=== PATIENT | female | born 1940 | race Caucasian/White ===

== ENCOUNTER 2024-09-20 08:34 | Inpatient (IN) | payer MEDICARE, SELFPAY ==
[2024-09-20] VITALS (113 sets, daily range): BP systolic 91–138; BP diastolic 48–95; PULSE 81–150; RESP 2–42; TEMP 36.7–39; O2SAT 83–100
--- NOTE | 2024-09-20 08:30 | RT.EKG_ITS ---
APPROVED REPORT Exam: Resting ECG Reason for Exam: altered mental status Patient Location: E HR:121 bpm ECG Measurements Heart Rate 121 AXIS VT 132 P 82 QRSd 171 QRS -60 QT 360 T 109 QTc 511 Conclusion Sinus tachycardia...rate> 99 Atrial premature complex...SV complex w/ short R-R interval Left bundle branch block...QRSd>120, broad/notched R ST elevation secondary to IVCD...Multiple VCG criteria Physician: borderline for meeting jaidaa criterion. Similiar to prior ekg at [facility] 72hrs ago
[2024-09-20 09:13] LABS: BE (Venous) -6 mmol/L (-2-3); HCO3 (Venous) 20 mmol/L (23-28); O2 Sat (Venous) 67 %; TCO2 (Venous) 18 mmol/L (24-29); pCO2 (Venous) 33 mmHg (41-51); pH (Venous) 7.38 (7.31-7.41); pO2 (Venous) 39 mmHg
[2024-09-20 09:15] LABS: Lactate 3.5 mmol/L (<or=2.0)
[2024-09-20 09:17] LABS: Abs Immature Grans 0.03 10^3/uL (0.0-0.06); Absolute Basophil Count 0.02 10^3/uL (0.0-0.2); Absolute Lymphocyte Count 0.44 10^3/uL (1.2-3.4); Absolute Monocyte Count 0.43 10^3/uL (0.1-0.8); Absolute Neutrophil Count 7.34 10^3/uL (1.2-6.7); Basophils % 0.2 %; HCT 36.5 % (36.0-46.0); HGB 12.1 g/dL (11.2-15.7); Immature Grans % 0.4 %; Lymphocytes % 5.3 %; MCH 30.5 pg (27.0-33.0); MCHC 33.2 % (32.0-36.0); MCV 92 fL (80-95); Monocytes % 5.2 %; Neutrophils % 88.9 %; RBC 3.97 10^6/uL (3.93-5.22); RDW 14.9 % (11.7-14.6); RDW-SD 50.9 fL; WBC 8.26 10^3/uL (4.4-10.8)
[2024-09-20] MEDS: Normal Saline 500 ML IV (09:20)
--- NOTE | 2024-09-20 09:22 | W.ED.GENAD ---
Discharge Plan Disposition Patient Disposition: Admit to [facility] Condition: Deteriorating Discharge Details Clinical Impression: Severe sepsis, Pancreatic mass, Congestive heart failure, Acute hypoxic respiratory failure, Acute metabolic encephalopathy, Acute renal failure, Thrombocytopenia Admit Date/Time: 09/20/24 14:48 Admit Provider: Jose E Acosta Attending Provider: Jose E Acosta Primary Care Provider: Leona Alfred ED Provider: Bubba Brannon HPI General Date/Time Provider Initiated Documentation: 09/20/24 08:36. HPI Narrative: 83-year-old female who has not visited this hospital before, who per family has a past medical history of congestive heart failure, COPD, mild dementia, presents today for evaluation of weakness, altered mental status and difficulty breathing. History does not come from the patient at all as she is notably confused and weak, history comes from family and history is slightly unclear, however it appears that the patient is normally quite functional and is able to feed and bathe herself well without any difficulty, she is able to normally conversation well, however about 48 hours ago she became notably weak and confused with garbled speech. She was brought to [facility], per family CT scan was negative, she was admitted, she had an MRI which was per family also negative. She remained quite weak and confused but was discharged home last night. While at home she continued to be more weak and gradually got more confused, had increased difficulty breathing, was given breathing treatments, had 1 or 2 dark bowel movements, and then this morning as her symptoms were all continuing to progressively worsen was brought to our emergency department for further assessment. Family denies any new falls or trauma otherwise. They state that she did not urinate much while at [facility]. They deny any other complaints at this time. Aside for receiving 1 or 2 breathing treatments at home, no other significant interventions were made medically. No other complaints at this time. Daughter who is at bedside states that the patient would not want to be intubated or have CPR performed. We do not have any advanced directives on record. Related Data Home Medications ?Medication ?Instructions ?Recorded ?Confirmed albuterol sulfate 90 mcg/actuation 2 inh inhalation Q6H PRN 09/20/24 09/20/24 aerosol inhaler (Ventolin HFA) aspirin 81 mg tablet,delayed 81 mg PO DAILY 09/20/24 09/20/24 release (Adult Aspirin Regimen) atorvastatin 40 mg tablet (Lipitor) 40 mg PO QHS 09/20/24 09/20/24 fluticasone furoate 100 1 inh inhalation DAILY 09/20/24 09/20/24 mcg-vilanterol 25 mcg/dose inhalation powder (Breo Ellipta) furosemide 40 mg tablet (Lasix) 40 mg PO DAILY 09/20/24 09/20/24 ipratropium 0.5 mg-albuterol 3 mg 3 ml inhalation QID PRN 09/20/24 09/20/24 (2.5 mg base)/3 mL nebulization soln losartan 25 mg tablet (Cozaar) 25 mg PO DAILY 09/20/24 09/20/24 magnesium gluconate 500 mg tablet 250 mg PO BID 09/20/24 09/20/24 metoprolol succinate 25 mg capsule 25 mg PO DAILY 09/20/24 09/20/24 sprinkle, ext. release 24 hr potassium chloride 20 mEq 20 meq PO DAILY 09/20/24 09/20/24 tablet,extended release(part/cryst) (Klor-Con M) Allergies Allergy/AdvReac Type Severity Reaction Status Date / Time No Known Allergies Allergy Unverified 09/20/24 10:18 General Stated Complaint: Fever CHARLES: 2 Exam Narrative Exam Narrative: 1.Const: Well-nourished, Well-developed, appearing stated age 2.Eyes: PERRL, no conjunctival injection, and symmetrical lids. 3.ENT: Atraumatic external nose and ears. Notably dry MM. Neck: Symmetric, trachea midline, No thyromegaly. No nuchal rigidity or neck stiffness 4.CVS: +S1/S2, Peripheral pulses 2+ and equal in all extremities. Brisk capillary refill in all extremities. 5.RESP: Tachypneic. Relatively clear to auscultation bilaterally. No significant wheezes rales or rhonchi 6.GI: Soft, Nontender/Nondistended, No hepatosplenomegaly. No guarding or rebound. 7.MSK: Normocephalic/Atraumatic, Extremities w/o deformity or ttp No cyanosis or clubbing, Normal movement of all extremities 8.Skin: Warm, Dry. No rashes or lesions. 9.Neuro: Patient moves all extremities, and seems to be writhing around in bed. She does make worded comments, but none that are indicative to the clinical scenario. She is not able to answer any questions. She responds to painful stimuli on pinching for all extremities, GCS is 10 10.Psych: (AAO) x0. Course Vital Signs Vital signs: Vital Signs Temperature 38.8 C H 09/20/24 08:35 Pulse 126 H 09/20/24 08:35 Respiratory Rate 39 H 09/20/24 08:35 Blood Pressure 138/95 H 09/20/24 08:35 Pulse Oximetry 83 L 09/20/24 08:35 Temperature 38.8 C H 09/20/24 08:35 Temperature Source Rectal 09/20/24 08:35 Pulse 126 H 09/20/24 08:35 Respiratory Rate 39 H 09/20/24 08:35 Blood Pressure 138/95 H 09/20/24 08:35 Blood Pressure Position Supine 09/20/24 08:35 Pulse Oximetry 83 L 09/20/24 08:35 Oxygen Delivery Method Room Air 09/20/24 08:35 Oxygen Flow Rate 0 09/20/24 08:35 Comment placed on NRB 09/20/24 08:35 Lab/Test Results Lab/Test Results: 09/20/24 09:14 Blood Blood Culture - Pending 09/20/24 09:00 Blood Blood Culture - Pending Laboratory Tests Range/Units 09/20/24 09:00 VBG pH (7.31-7.41) 7.38 VBG pCO2 (41-51) mmHg 33 L VBG pO2 mmHg 39 VBG HCO3 (23-28) mmol/L 20 L VBG Total CO2 (24-29) mmol/L 18 L VBG O2 Saturation % 67 VBG Base Excess (-2-3) mmol/L -6 L VBG Lactate (<or=2.0) mmol/L 3.5 H* NT-Pro-B Natriuret Pep Cancelled Medical Decision Making 83-year-old female who has not visited this hospital before, who per family has a past medical history of congestive heart failure, COPD, mild dementia, presents today for evaluation of weakness, altered mental status and difficulty breathing. History does not come from the patient at all as she is notably confused and weak, history comes from family and history is slightly unclear, however it appears that the patient is normally quite functional and is able to feed and bathe herself well without any difficulty, she is able to normally conversation well, however about 48 hours ago she became notably weak and confused with garbled speech. She was brought to [facility], per family CT scan was negative, she was admitted, she had an MRI which was per family also negative. She remained quite weak and confused but was discharged home last night. While at home she continued to be more weak and gradually got more confused, had increased difficulty breathing, was given breathing treatments, had 1 or 2 dark bowel movements, and then this morning as her symptoms were all continuing to progressively worsen was brought to our emergency department for further assessment. Family denies any new falls or trauma otherwise. They state that she did not urinate much while at [facility]. They deny any other complaints at this time. Aside for receiving 1 or 2 breathing treatments at home, no other significant interventions were made medically. No other complaints at this time. Daughter who is at bedside states that the patient would not want to be intubated or have CPR performed. We do not have any advanced directives on record. Exam demonstrates an altered female, notably dry mucous membranes, GCS of 10, lungs are relatively clear however she is notably hypoxic on arrival at 83%. She is febrile, tachycardic, and tachypneic meeting sepsis criteria. Concern for pneumonia, UTI, dehydration, hypercarbic respiratory acidosis, elevated ammonia level, or electrolyte derangement. Stroke less likely, but remains on the differential. No neck stiffness or nuchal rigidity to suggest meningitis. Tickborne illness of concern but family is not aware of any recent tick bites. Will evaluate for these etiologies, gently rehydrate, start broad-spectrum antibiotics vancomycin Zosyn and doxycycline, will look for records from [facility], will monitor closely and reassess. Notable left bundle branch block, but does not quite meet Sgarbossa criteria and or modified Sgarbossa criteria and for positive CA, however findings are notably borderline. 10:04 AM Records were [place] [facility] [facility] [place] records indicate from [facility] back in 2023 that the patient has a history of cardiomyopathy in the setting of COPD, her ejection fraction then was 30 to 35% with diffuse hypokinesis and a right ventricle that was moderately to severely decreased in function, however she was on diuretics for CHF, she also had a known history of left bundle branch block. 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 No other evidence of acute process on CT imaging. Patient was admitted and MRI was performed. Per discharge summary it was stated that she returned to her baseline and MRI results were not back yet. Discharge summary states that feels that she is safe to be discharged home. She was discharged home on baby aspirin and atorvastatin. We will request MRI report from [facility].` 4:27 PM Laboratory workup has returned, patient's fever has improved, oxygen saturation is 96% on 3 L, heart rate has improved to 108 after gentle fluids, she has no white count, platelets are down to 85, she has a mild left shift. VBG is stable, lactate is 3.5, electrolytes stable, creatinine up to 1.8, BUN of 65, notable transaminitis with an AST of 2100 and ALT of 1500. Lipase is normal, proBNP notably high at greater than 35,000, procalcitonin high at 42, initial troponin 900, repeat troponin is now up to 1200. I did contact [facility] and discussed the case with Ivana from cardiology as well as Dr. Urbina her attending. They reviewed the EKG and do not feel that it meet Sgarbossa criteria and. Although the troponin is notably climbing, they feel this is more likely related to demand ischemia type II NSTEMI secondary to her notable illness. Urinalysis shows no evidence of infection. CT imaging shows notable cardiomegaly, pulmonary edema pleural effusions, there are enlarged pulmonary arteries suggestive of pulmonary artery hypertension. There is evidence of abdominal ascites, soft tissue edema suspicious for anasarca, hypodensity in the liver, concerning for metastatic lesions, as well as evidence of a hypodensity in the head of the pancreas concerning for pancreatic cancer. Patient still requiring oxygen supplementation, mental status still notably diminished. With the patient's significant cardiac component, her clinical evidence to suggest dehydration and tachycardia and severe sepsis with her lactate procalcitonin and fever and tachycardia, in combination with her challenging cardiac clinical picture, compounded by the patient's concern for potential pancreatic cancer and her sudden rapid increase in transaminitis, I discussed the concerning clinical picture with family. Broad-spectrum antibiotics had already been started of vancomycin and Zosyn and doxycycline, however I am worried that the patient's cumulative picture may represent that of an irreversible acute decline. We discussed all of these findings and concerns with family, and at this time through shared decision making process the patient will be admitted for further monitoring, and discussion of potential transition to end-of-life care and home discharge. I discussed this with the hospitalist Dr. Emery, he agrees with the assessment and plan. I have extensively reviewed the treatment plan with the patient. I have addressed all patient concerns at this time. I have also discussed the plan with the admitting physician and they agree with the current assessment and plan and have agreed to assume responsibility for the patient. All parties demonstrate verbal understanding and agreement with our assessment and plan at this time. The documentation in this chart was dictated using [employer] dictation software. Please excuse any dictation errors. FINDINGS: Ventricles and Extra axial spaces: Normal in size and morphology for the patient's age. Hemorrhage: None. Cerebral parenchyma: There are areas of decreased attenuation in the white matter most consistent with chronic microvascular ischemic disease. There is no mass effect or evidence of an acute territorial infarct. There is an area of encephalomalacia in the left parietal lobe. Midline shift: None. Brainstem/Cerebellum: Normal. Calvarium: Normal. Visualized Paranasal sinuses/Mastoids: Clear. Soft Tissues: There is an enlarged right superior ophthalmic vein. IMPRESSION: 1. No acute intracranial process. 2. Enlarged right superior ophthalmic vein. Nonemergent MRI of the orbits without and with contrast is recommended for further evaluation. FINDINGS: The examination is limited due to patient motion artifact. Lack of IV contrast does limit evaluation of the abdominal pelvic organs. CHEST: Tracheobronchial tree: Patent where visualized. No bronchiectasis. Pulmonary parenchyma: There is a small left pleural effusion and subjacent infiltrate. There is mild interstitial thickening which may represent pulmonary edema. There is a small right pleural effusion. Mediastinum and Laina: No dominant adenopathy or fluid collection. The esophagus is unremarkable. Thyroid gland: Unremarkable. Pleura: There is no pneumothorax. Heart: There is marked cardiomegaly. There is prominence of the pulmonary vasculature suggesting pulmonary artery hypertension. Coronary artery calcifications are present. There is calcification of the mitral annulus. No pericardial effusion. Aorta: The ascending thoracic aorta measures 4.2 x 4.0 cm. Atherosclerotic calcification is present. Lymph nodes: Within normal limits. Bones:Within normal limits for the patient's age. There are old healed bilateral rib fracture deformities. Bones are osteopenic. Soft tissues: Unremarkable. ABDOMEN: Liver: The liver is enlarged. There is a round area of decreased attenuation in the left lobe of the liver measuring 1.5 cm. There is a 2nd area of decreased attenuation in the subcapsular region of the medial segment of the left lobe of the liver measuring 1.7 cm. These are indeterminate on this noncontrast examination. Gallbladder and Biliary Tract: Status post cholecystectomy. Pancreas: There is a 1.2 x 1.2 cm area of decreased attenuation in the head of the pancreas (series 4, image 183). Spleen: Normal. Adrenals: No masses seen. Kidneys: There is enhancement of the kidneys and hyperdense material seen within the urinary bladder consistent with recent contrast administration. There is no hydronephrosis. There are bilateral renal cysts. No follow-up is recommended. Abdominal Aorta: Abdominal portion non-dilated. Atherosclerotic calcification is present. Bowel: There is diverticulosis of the colon without evidence of acute diverticulitis. The bowel shows no evidence of obstruction. Peritoneal Cavity: There is a large amount of pelvic ascites and small amount of abdominal ascites present. No free air. Lymph Nodes: Within normal limits. Bones: Within normal limits for the patient's age. Soft Tissues: There is edema seen in the soft tissues suspicious for anasarca. PELVIS: Bladder: There is a Pierre catheter in the urinary bladder. Contrast is seen within the urinary bladder from recent probable radiology examination. There is diffuse thickening of the wall of the urinary bladder. This may be due to underdistention, but cystitis cannot be excluded. Reproductive Organs: Unremarkable as visualized. Lymph Nodes: Within normal limits. Bones: Within normal limits for the patient's age. IMPRESSION: 1. Cardiomegaly, pulmonary edema and pleural effusions consistent with congestive heart failure. 2. Enlarged pulmonary arteries suggestive of pulmonary artery hypertension. 3. Large amount of abdominal ascites. 4. Soft tissue edema suspicious for anasarca. 5. Hypodensity seen in the liver which are indeterminate on this noncontrast examination. Cyst versus solid mass such as metastasis should be considered. 6. Area of hypodensity in the head of the pancreas. Pancreatic neoplasm should be considered. 7. There is contrast seen within the kidneys and urinary bladder consistent with recent radiologic examination. 8. Thickening of the wall of the urinary bladder. This may be due to underdistention. Cystitis cannot be excluded. 9. Findings were discussed with Dr. Brannon at 12:15 p.m. on 09/20/2024. Critical Care Time Critical Care Time Critical Care Time: Yes Total Critical Care Time: 90 Attestation: Upon my evaluation, this patient had a high probability of imminent or life-threatening deterioration, which required my direct attention, intervention, and personal management. I have personally provided 45 minutes of critical care time exclusive of time spent on separately billable procedures. Time includes review of laboratory data, radiology results, discussion with consultants, and monitoring for potential decompensation. Interventions were performed as documented. PFSH All Active Problems (Updated 09/20/24 @ 16:36 by Bubba Brannon DO) Acute metabolic encephalopathy (Acute) Acute hypoxic respiratory failure (Acute) Congestive heart failure (Chronic) Pancreatic mass (Acute) Severe sepsis (Acute) Discharge planning issues (Acute) DVT prophylaxis (Acute) Thrombocytopenia (Chronic) Acute renal failure (Acute) Elevated troponin (Acute) Elevated liver enzymes (Acute) Severe sepsis with acute organ dysfunction (Acute) Medical History (Updated 09/20/24 @ 16:36 by Bubba Brannon DO) COPD (chronic obstructive pulmonary disease) Dementia Heart failure with reduced ejection fraction Surgical History (Updated 09/20/24 @ 15:08 by Jose E Acosta) S/P cholecystectomy Family History (Updated 09/20/24 @ 15:13 by Jose E Acosta) Mother Cancer Other Heart disease Social History (Updated 09/20/24 @ 15:42 by Jose E Acosta) Smoking/Tobacco Use Status: Never Smoking risk assessment performed?: Yes Alcohol Intake: current Alcohol Intake frequency: holidays/special occasions only Drug use: Never Substance use type: does not use Housing: house Do you feel safe at home: Yes Do you feel safe in your relationship?: Yes 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 [employer] - prefers minimal medical intervention
[2024-09-20 09:34] LABS: Diff Comment PLT Morph Reviewed; Platelet Count 85 10^3/uL (130-400); RBC Morphology Normal
[2024-09-20 09:39] LABS: Bilirubin Small (Negative); Blood Moderate (Negative); Clarity Sl Cloudy (Clear); Glucose Negative (Negative); Ketones Negative (Negative); Leukocyte Esterase Negative (Negative); Nitrite Negative (Negative); pH 5.5 (5-8)
[2024-09-20 09:40] LABS: Albumin 3.2 g/dL (3.4-5.0); Alkaline Phosphatase 128 U/L (46-116); Anion Gap 17.6 mmol/L (3-11); BUN 65 mg/dL (7-18); Bilirubin, Total 1.6 mg/dL (0.2-1.0); CO2 20.4 mmol/L (21.0-32.0); CREATININE 1.8 mg/dL (0.55-1.02); Calcium 8.4 mg/dL (8.5-10.1); Chloride 105 mmol/L (98-107); Estimated GFR 27.27 (mL/min/1.73m2); Glucose 129 mg/dL (74-106); Potassium 3.8 mmol/L (3.5-5.1); Sodium 143 mmol/L (136-145); TSH (W/Ref FT4) 3.04 uIU/mL (0.36-3.74); Total Protein 6.1 g/dL (6.4-8.2)
[2024-09-20 09:41] LABS: Procalcitonin 42.07 ng/mL
[2024-09-20 09:44] LABS: INR 1.3 (0.9-1.1); PTT Activated 32.2 sec (20.6-30.2); Prothrombin Time 13.2 sec (9.1-11.1)
[2024-09-20] MEDS: ACETAMINOPHEN 1,000 MG/100 ML BAG 400 MG (09:45)
--- NOTE | 2024-09-20 09:45 | DI.CT_ITS ---
Exam(s) CT CHEST/ABD/PEL WO EXAM: CT CHEST/ABD/PEL WO CLINICAL HISTORY: renal failure, AMS, transaminitis TECHNIQUE: Imaging Protocol: Axial computed tomography images with coronal and sagittal reformatted images were created and reviewed. Computer aided detection (CAD) was utilized. COMPARISON: No exams were available for comparison FINDINGS: The examination is limited due to patient motion artifact. Lack of IV contrast does limit evaluation of the abdominal pelvic organs. CHEST: Tracheobronchial tree: Patent where visualized. No bronchiectasis. Pulmonary parenchyma: There is a small left pleural effusion and subjacent infiltrate. There is mild interstitial thickening which may represent pulmonary edema. There is a small right pleural effusion. Mediastinum and Laina: No dominant adenopathy or fluid collection. The esophagus is unremarkable. Thyroid gland: Unremarkable. Pleura: There is no pneumothorax. Heart: There is marked cardiomegaly. There is prominence of the pulmonary vasculature suggesting pulmonary artery hypertension. Coronary artery calcifications are present. There is calcification of the mitral annulus. No pericardial effusion. Aorta: The ascending thoracic aorta measures 4.2 x 4.0 cm. Atherosclerotic calcification is present. Lymph nodes: Within normal limits. Bones:Within normal limits for the patient's age. There are old healed bilateral rib fracture deformities. Bones are osteopenic. Soft tissues: Unremarkable. ABDOMEN: Liver: The liver is enlarged. There is a round area of decreased attenuation in the left lobe of the liver measuring 1.5 cm. There is a 2nd area of decreased attenuation in the subcapsular region of the medial segment of the left lobe of the liver measuring 1.7 cm. These are indeterminate on this noncontrast examination. Gallbladder and Biliary Tract: Status post cholecystectomy. Pancreas: There is a 1.2 x 1.2 cm area of decreased attenuation in the head of the pancreas (series 4, image 183). Spleen: Normal. Adrenals: No masses seen. Kidneys: There is enhancement of the kidneys and hyperdense material seen within the urinary bladder consistent with recent contrast administration. There is no hydronephrosis. There are bilateral renal cysts. No follow-up is recommended. Abdominal Aorta: Abdominal portion non-dilated. Atherosclerotic calcification is present. Bowel: There is diverticulosis of the colon without evidence of acute diverticulitis. The bowel shows no evidence of obstruction. Peritoneal Cavity: There is a large amount of pelvic ascites and small amount of abdominal ascites present. No free air. Lymph Nodes: Within normal limits. Bones: Within normal limits for the patient's age. Soft Tissues: There is edema seen in the soft tissues suspicious for anasarca. PELVIS: Bladder: There is a Pierre catheter in the urinary bladder. Contrast is seen within the urinary bladder from recent probable radiology examination. There is diffuse thickening of the wall of the urinary bladder. This may be due to underdistention, but cystitis cannot be excluded. Reproductive Organs: Unremarkable as visualized. Lymph Nodes: Within normal limits. Bones: Within normal limits for the patient's age. IMPRESSION: 1. Cardiomegaly, pulmonary edema and pleural effusions consistent with congestive heart failure. 2. Enlarged pulmonary arteries suggestive of pulmonary artery hypertension. 3. Large amount of abdominal ascites. 4. Soft tissue edema suspicious for anasarca. 5. Hypodensity seen in the liver which are indeterminate on this noncontrast examination. Cyst versus solid mass such as metastasis should be considered. 6. Area of hypodensity in the head of the pancreas. Pancreatic neoplasm should be considered. 7. There is contrast seen within the kidneys and urinary bladder consistent with recent radiologic examination. 8. Thickening of the wall of the urinary bladder. This may be due to underdistention. Cystitis cannot be excluded. 9. Findings were discussed with Dr. Brannon at 12:15 p.m. on 09/20/2024. RADIATION DOSE DELIVERED: 309.45mGy.cm Total DLP 309.45mGy.cm Total DLP DATA REPOSITORY: All CT scans at this facility are submitted to the National Radiology Data Registry (NRDR) Dose Index Registry (DIR) with the [employer] (ACR). RADIATION OPTIMIZATION: All CT scans at this facility use at least one of these dose optimization techniques: automated exposure control; mA and/or kV adjustment per patient size (includes targeted exams where dose is matched to clinical indication); or iterative reconstruction.
--- NOTE | 2024-09-20 09:45 | DI.CT_ITS ---
Exam(s) CT HEAD WO EXAM: CT HEAD WO CLINICAL HISTORY: AMS. TECHNIQUE: Imaging Protocol: Axial computed tomography images with coronal and sagittal reformatted images were created and reviewed COMPARISON: No exams were available for comparison FINDINGS: Ventricles and Extra axial spaces: Normal in size and morphology for the patient's age. Hemorrhage: None. Cerebral parenchyma: There are areas of decreased attenuation in the white matter most consistent with chronic microvascular ischemic disease. There is no mass effect or evidence of an acute territorial infarct. There is an area of encephalomalacia in the left parietal lobe. Midline shift: None. Brainstem/Cerebellum: Normal. Calvarium: Normal. Visualized Paranasal sinuses/Mastoids: Clear. Soft Tissues: There is an enlarged right superior ophthalmic vein. IMPRESSION: 1. No acute intracranial process. 2. Enlarged right superior ophthalmic vein. Nonemergent MRI of the orbits without and with contrast is recommended for further evaluation. Unexpected findings RADIATION DOSE DELIVERED: 845.62mGy.cm Total DLP DATA REPOSITORY: All CT scans at this facility are submitted to the National Radiology Data Registry (NRDR) Dose Index Registry (DIR) with the [employer] (ACR). RADIATION OPTIMIZATION: All CT scans at this facility use at least one of these dose optimization techniques: automated exposure control; mA and/or kV adjustment per patient size (includes targeted exams where dose is matched to clinical indication); or iterative reconstruction.
[2024-09-20] MEDS: DOXYCYCLINE 100 MG in Normal Saline 100 ML IVPB ×2 (09:48→20:40)
[2024-09-20] MEDS: VANCOMYCIN/WATER (PEG) 1 GM/200 ML BAG IVPB (09:51)
[2024-09-20 09:53] LABS: AST 2104 U/L (15-37)
[2024-09-20 09:54] LABS: Troponin I 823 ng/L (<or=51)
[2024-09-20 09:55] LABS: Ammonia < 10 umol/L (11-32)
[2024-09-20 10:04] LABS: Bacteria Rare HPF (Negative); C & S Indicated? C&S Done As Ordered; Crystals Moderate Amorphous HPF (Negative); Epithelial Cells Few HPF (Negative); Mucus Trace (Negative); WBC 0-2 HPF (0-5)
[2024-09-20 10:11] LABS: ALT 1505 U/L (14-59)
[2024-09-20 10:12] LABS: NT-proBNP > 35000 pg/mL (<300)
[2024-09-20] MEDS: PIPERACILLIN/TAZO 4.5 GM in Normal Saline 100 ML IVPB (10:12)
[2024-09-20 10:30] LABS: Troponin I 909 ng/L (<or=51)
--- NOTE | 2024-09-20 11:51 | TELEP.MEDR_ITS ---
Date of service: 09/20/24 Time of Service: 11:51 Telepharmacy Home Med Rec Allergies Allergies: No Known Allergies Allergy (Unverified 09/20/24 10:18) Interview Person Interviewed: Pt unable to participate, Surescripts unavailable. Medications per [facility] DC Summary 09/18/24 Quality Quality of Interview/Accuracy of Medication List: Good Sources Sources used to compile medication list: [email or web address] Medication List and Other Changes made to Home Medication List: ADDITIONS: All, new profile DELETIONS: None CHANGES: None Additional Notes Additional Notes: Medications per [facility] DC Summary 09/18/24 Recommended Changes Recommended Changes(reason for recommendation): None Attestation: The home medication list is now updated to the best of my knowledge and is ready to be reconciled by the provider. Please contact the [facility] Medication Reconciliation Pharmacist at for any questions.
[2024-09-20 11:56] LABS: COVID-19 PCR Negative (Negative); Influenza A PCR Negative (Negative); Influenza B PCR Negative (Negative); RSV PCR Negative (Negative)
[2024-09-20 11:58] LABS: Source Nasopharynx
[2024-09-20 12:38] LABS: Troponin I 1234 ng/L (<or=51)
--- NOTE | 2024-09-20 14:30 | RT.EKG_ITS ---
APPROVED REPORT Exam: Resting ECG Reason for Exam: elevated troponins Patient Location: E HR:95 bpm ECG Measurements Heart Rate 95 AXIS WV 154 P 86 QRSd 179 QRS -57 QT 422 T 111 QTc 521 Conclusion Sinus rhythm...normal P axis, V-rate 60- 99 Atrial premature complexes in couplets...pair SV complexes w/ short R-R Left bundle branch block...QRSd>120, broad/notched R ST elevation secondary to IVCD...Multiple VCG criteria Physician: Similiar to previous at [facility] from 72 hrs ago. Borderline for sgarbossa criterion
--- NOTE | 2024-09-20 14:51 | W.PM.HP.N ---
Date of service: 09/20/24 Time of Service: 14:51 Assessment and Plan Assessment and plan (1) Severe sepsis with acute organ dysfunction: Status: Acute Assessment and plan: Fever, tahcycardia/tachypnea, lactate, and multiorgan dysfunction. Unclear source, UCx pending. Recent tick exposure, Tick/Lyme panel pending from [facility]. Should cover for anaplasmosis with LFTs/plts Pip/tazo and vancomycin with cultures pending s/p 500ml fluids, HR did improve to 100s. Started maintenance, but given CHF will give additional fluid bolus only if HR increassing or low BP (2) Heart failure with reduced ejection fraction: Assessment and plan: Chest CT c/w some pulmonary edema, but I don't want to diurese with sepsis as above. (3) Elevated troponin: Status: Acute Assessment and plan: Troponin was elevated at [facility], but much higher and trending up. No chest pain, c/w stress ischemia, will get EKG to assess (4) Elevated liver enzymes: Status: Acute Assessment and plan: Appears acute. Likely a/w shock and CHF. Could be anaplasmosis. follow (5) Acute renal failure: Status: Acute Assessment and plan: A/w sepsis, likely pre-renal. (6) Thrombocytopenia: Status: Chronic Assessment and plan: a/w sepsis (7) COPD (chronic obstructive pulmonary disease): Assessment and plan: Was SOB on presentation, but more c/w sepsis/CHF. No steroids for now. Nebs prn. (8) DVT prophylaxis: Status: Acute Assessment and plan: possible blood in stool, use SCDs for now, if hemoccult negative consider enoxaparin (9) Discharge planning issues: Status: Acute Assessment and plan: Admit to ICU confirms DNR/DNI. They would like to take her home, but agreeable to supportive care at least overnight here. History of Present Illness History of Present Illness Chief Complaint: SOB Narrative: 83 yo F with history of HFrEF, COPD, admitted at [facility] 09/18- for episode of dysphagia with diagnosis of TIA vs CVA who presented this morning to the ED with fevers, confusion, and shortness of breath. She had about 24 hours of aphasia and diminished mental status before she was admitted 09/18. CTA was negative, MRI done 09/19 but read still pending. She was discharged per family request after doing well with PT 09/19 and resolution of her aphasia. The famliy states that even during the hospitalization she had fevers, low urine output, and multiple dark/black stools, though there is not documentation of these concerns in the [facility] record. They took her home yesterday and that evening she continued to have soft pasty black stools and fevers, though no temperature numbers recorded. At 4am, she woke breathing heavy and again more confused. Her nebulizer helped but not completely. She didn't want to come into the hospital, but she relented and they brought her to [facility]. She denies pain including chest pain or abdominal pain. Per her , she doesn't take regular medication even OTC other than metoprolol and inhalers due to their cheondoism beliefs. She never filled the atorvastatin, doesn't take losartan. She occaisionally takes furosemide, taking some recently and less swelling now than she had last week. Review of Systems All systems reviewed & are unremarkable except as noted in HPI and below Gastrointestinal Gastrointestinal: Denies hematochezia Genitourinary Genitourinary: Denies hematuria Integumentary/Breasts Skin/Breast: Reports rash (irritated from frequent stools) PFSH All Active Problems (Updated 09/20/24 @ 15:36 by Jose E Acosta) Discharge planning issues (Acute) DVT prophylaxis (Acute) Thrombocytopenia (Chronic) Acute renal failure (Acute) Elevated troponin (Acute) Elevated liver enzymes (Acute) Severe sepsis with acute organ dysfunction (Acute) Medical History (Updated 09/20/24 @ 15:36 by Jose E Acosta) COPD (chronic obstructive pulmonary disease) Dementia Heart failure with reduced ejection fraction Surgical History (Updated 09/20/24 @ 15:08 by Jose E Acosta) S/P cholecystectomy Family History (Updated 09/20/24 @ 15:13 by Jose E Acosta) Mother Cancer Other Heart disease Social History (Updated 09/20/24 @ 15:42 by Jose E Acosta) Smoking/Tobacco Use Status: Never Smoking risk assessment performed?: Yes Alcohol Intake: current Alcohol Intake frequency: holidays/special occasions only Drug use: Never Substance use type: does not use Housing: house Do you feel safe at home: Yes Do you feel safe in your relationship?: Yes 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 [employer] - prefers minimal medical intervention Meds Allergies and Home Medications Allergies Allergy/AdvReac Type Severity Reaction Status Date / Time No Known Allergies Allergy Unverified 09/20/24 10:18 Home Medications ?Medication ?Instructions ?Recorded ?Confirmed ?Type albuterol sulfate 90 mcg/actuation 2 inh inhalation Q6H PRN 09/20/24 09/20/24 History aerosol inhaler (Ventolin HFA) aspirin 81 mg tablet,delayed 81 mg PO DAILY 09/20/24 09/20/24 History release (Adult Aspirin Regimen) atorvastatin 40 mg tablet (Lipitor) 40 mg PO QHS 09/20/24 09/20/24 History fluticasone furoate 100 1 inh inhalation DAILY 09/20/24 09/20/24 History mcg-vilanterol 25 mcg/dose inhalation powder (Breo Ellipta) furosemide 40 mg tablet (Lasix) 40 mg PO DAILY 09/20/24 09/20/24 History ipratropium 0.5 mg-albuterol 3 mg 3 ml inhalation QID PRN 09/20/24 09/20/24 History (2.5 mg base)/3 mL nebulization soln losartan 25 mg tablet (Cozaar) 25 mg PO DAILY 09/20/24 09/20/24 History magnesium gluconate 500 mg tablet 250 mg PO BID 09/20/24 09/20/24 History metoprolol succinate 25 mg capsule 25 mg PO DAILY 09/20/24 09/20/24 History sprinkle, ext. release 24 hr potassium chloride 20 mEq 20 meq PO DAILY 09/20/24 09/20/24 History tablet,extended release(part/cryst) (Klor-Con M) Exam Narrative Exam Narrative: GEN: Somnolent, but does wake to voice/touch, oriented only to self, cooperates breifly with exam, follows directions. Not in acute distress. HEENT: Head atraumatic. Conjunctiva clear, no icterus. PEERL, EOMI. no rhinorrhea. MMM, OP benign. Neck is supple with no masses or lymphadenopathy, trachea midline LUNGS: Bibasliar rales, slight expiratory wheeze, mildly tachypneic in 20s with some mild accessory muscle use. CV: Regular and tachycardic with no murmurs, gallops, or rubs. ABD: active bowel sounds, soft, nontender and nondistended. No overt fluid wave. Firm prominene in RUQ with deep palpation. EXT: no cyanosis, clubbing. Trace alan LE edema, warm. MSK: No joint redness or swelling NEURO: CN 2-12 grossly intact. Normal movement of 4 extremities. Normal speech and coordination. No tremor SKIN: No rashes or open wounds or pressure sores. A little red perirectally. PSYCH: sedated mood and affect Results Imaging Imaging Studies: CT head: 1. No acute intracranial process. 2. Enlarged right superior ophthalmic vein. Nonemergent MRI of the orbits without and with contrast is recommended for further evaluation. CT C/A/P: 1. Cardiomegaly, pulmonary edema and pleural effusions consistent with congestive heart failure. 2. Enlarged pulmonary arteries suggestive of pulmonary artery hypertension. 3. Large amount of abdominal ascites. 4. Soft tissue edema suspicious for anasarca. 5. Hypodensity seen in the liver which are indeterminate on this noncontrast examination. Cyst versus solid mass such as metastasis should be considered. 6. Area of hypodensity in the head of the pancreas. Pancreatic neoplasm should be considered. 7. There is contrast seen within the kidneys and urinary bladder consistent with recent radiologic examination. 8. Thickening of the wall of the urinary bladder. This may be due to underdistention. Cystitis cannot be excluded. 9. Findings were discussed with Dr. Brannon at 12:15 p.m. on 09/20/2024. Labs 09/20/24 09:00 09/20/24 09:00 Labs: Laboratory Results - last 24 hr 09/20/24 09/20/24 09/20/24 09:00 09:00 09:14 WBC 8.26 RBC 3.97 Hgb 12.1 Hct 36.5 MCV 92 MCH 30.5 MCHC 33.2 RDW 14.9 H Plt Count 85 L MPV Immature Gran % 0.4 Neutrophils % 88.9 Lymphocytes % 5.3 Monocytes % 5.2 Eosinophils % 0.0 Basophils % 0.2 Nucleated RBC % 0.0 Absolute Neutrophils 7.34 H Absolute Lymphocytes 0.44 L Absolute Monocytes 0.43 Absolute Eosinophils 0.00 Absolute Basophils 0.02 RBC Morphology Normal PT 13.2 H INR 1.3 H APTT 32.2 H VBG pH 7.38 VBG pCO2 33 L VBG pO2 39 VBG HCO3 20 L VBG Total CO2 18 L VBG O2 Saturation 67 VBG Base Excess -6 L VBG Lactate 3.5 H* Sodium 143 Potassium 3.8 Chloride 105 Carbon Dioxide 20.4 L Anion Gap 17.6 H BUN 65 H Creatinine 1.8 H Est GFR (CKD-EPI 2020) 27.27 Glucose 129 H Calcium 8.4 L Total Bilirubin 1.6 H AST 2104 H ALT 1505 H Alkaline Phosphatase 128 H Ammonia < 10 L Troponin I 823 H* NT-Pro-B Natriuret Pep > 74751 H Cancelled Total Protein 6.1 L Albumin 3.2 L Procalcitonin 42.07 TSH 3.04 Urine Color Urine Clarity Urine pH Ur Specific [place] Urine Protein Urine Ketones Urine Blood Urine Nitrite Urine Bilirubin Urine Urobilinogen Ur Leukocyte Esterase Urine RBC Urine WBC Ur Epithelial Cells Urine Crystals Urine Bacteria Urine Casts Urine Mucus Ur Culture Indicated? Urine Glucose COVID-19 Source SARS-CoV-2 (PCR) Influenza Type A (PCR) Influenza Type B (PCR) RSV (PCR) 09/20/24 09/20/24 09/20/24 09:31 10:00 11:06 WBC RBC Hgb Hct MCV MCH MCHC RDW Plt Count MPV Immature Gran % Neutrophils % Lymphocytes % Monocytes % Eosinophils % Basophils % Nucleated RBC % Absolute Neutrophils Absolute Lymphocytes Absolute Monocytes Absolute Eosinophils Absolute Basophils RBC Morphology PT INR APTT VBG pH VBG pCO2 VBG pO2 VBG HCO3 VBG Total CO2 VBG O2 Saturation VBG Base Excess VBG Lactate Sodium Potassium Chloride Carbon Dioxide Anion Gap BUN Creatinine Est GFR (CKD-EPI 2020) Glucose Calcium Total Bilirubin AST ALT Alkaline Phosphatase Ammonia Troponin I 909 H* NT-Pro-B Natriuret Pep Total Protein Albumin Procalcitonin TSH Urine Color Yellow Urine Clarity Sl Cloudy Urine pH 5.5 Ur Specific [place] 1.020 Urine Protein 100 H Urine Ketones Negative Urine Blood Moderate H Urine Nitrite Negative Urine Bilirubin Small H Urine Urobilinogen 1.0 H Ur Leukocyte Esterase Negative Urine RBC 10-20 H Urine WBC 0-2 Ur Epithelial Cells Few Urine Crystals Moderate Amorphous Urine Bacteria Rare Urine Casts 5-10 Fine Granular Urine Mucus Trace Ur Culture Indicated? C&S Done As Ordered Urine Glucose Negative COVID-19 Source Nasopharynx SARS-CoV-2 (PCR) Negative Influenza Type A (PCR) Negative Influenza Type B (PCR) Negative RSV (PCR) Negative 09/20/24 12:00 WBC RBC Hgb Hct MCV MCH MCHC RDW Plt Count MPV Immature Gran % Neutrophils % Lymphocytes % Monocytes % Eosinophils % Basophils % Nucleated RBC % Absolute Neutrophils Absolute Lymphocytes Absolute Monocytes Absolute Eosinophils Absolute Basophils RBC Morphology PT INR APTT VBG pH VBG pCO2 VBG pO2 VBG HCO3 VBG Total CO2 VBG O2 Saturation VBG Base Excess VBG Lactate Sodium Potassium Chloride Carbon Dioxide Anion Gap BUN Creatinine Est GFR (CKD-EPI 2020) Glucose Calcium Total Bilirubin AST ALT Alkaline Phosphatase Ammonia Troponin I 1234 H* NT-Pro-B Natriuret Pep Total Protein Albumin Procalcitonin TSH Urine Color Urine Clarity Urine pH Ur Specific [place] Urine Protein Urine Ketones Urine Blood Urine Nitrite Urine Bilirubin Urine Urobilinogen Ur Leukocyte Esterase Urine RBC Urine WBC Ur Epithelial Cells Urine Crystals Urine Bacteria Urine Casts Urine Mucus Ur Culture Indicated? Urine Glucose COVID-19 Source SARS-CoV-2 (PCR) Influenza Type A (PCR) Influenza Type B (PCR) RSV (PCR) Last Vital Signs Temp 37.5 C 09/20/24 14:20 Pulse 105 H 09/20/24 14:20 Resp 27 H 09/20/24 14:20 BP 108/75 09/20/24 14:15 Pulse Ox 97 09/20/24 14:20 Time Spent Time spent with Patient: >75 minutes Time was spent: preparing to see the patient(eg.review tests), obtaining and/or reviewing separately otained hiistory, ordering medications,tests, procedures, referring, communicating with other health transitional care nurse, indepentently interpreting results, counseling the patient and care coordination
[2024-09-20] MEDS: Albuterol/Ipratropium 3 ML UPD VIAL UPD ×2 (15:08→20:05)
[2024-09-20] MEDS: ACETAMINOPHEN 1,000 MG/100 ML BAG 400 MG IVPB (18:17)
[2024-09-20] MEDS: Miconazole 2% Topical Powder 85 GM BTL (20:38)
[2024-09-20] MEDS: Normal Saline Flush 10 ML SYR IVP ×2 (20:38→22:30)
[2024-09-20] MEDS: PIPERACILLIN/TAZO 2.25 GM in Normal Saline 50 ML IVPB (22:30)
[2024-09-21] VITALS (35 sets, daily range): BP systolic 62–147; BP diastolic 52–128; PULSE 46–159; RESP 2–36; TEMP 36.4; O2SAT 79–94
[2024-09-21] MEDS: ACETAMINOPHEN 1,000 MG/100 ML BAG 400 MG IVPB (02:19)
[2024-09-21] MEDS: Albuterol/Ipratropium 3 ML UPD VIAL UPD ×2 (02:40→09:12)
[2024-09-21] MEDS: PIPERACILLIN/TAZO 2.25 GM in Normal Saline 50 ML IVPB ×2 (03:26→10:40)
[2024-09-21] MEDS: Normal Saline Flush 10 ML SYR IVP ×2 (03:26→10:48)
[2024-09-21 07:00] LABS: Abs Immature Grans 0.05 10^3/uL (0.0-0.06); Absolute Monocyte Count 0.31 10^3/uL (0.1-0.8); HCT 32.7 % (36.0-46.0); HGB 11.1 g/dL (11.2-15.7); MCH 30.8 pg (27.0-33.0); MCHC 33.9 % (32.0-36.0); MCV 91 fL (80-95); MPV 13.9 fL (8.0-11.0); RDW 14.9 % (11.7-14.6); RDW-SD 50.2 fL; WBC 6.22 10^3/uL (4.4-10.8)
[2024-09-21 07:28] LABS: Albumin 2.5 g/dL (3.4-5.0); Alkaline Phosphatase 101 U/L (46-116); Anion Gap 12.6 mmol/L (3-11); BUN 78 mg/dL (7-18); Bilirubin, Total 1.7 mg/dL (0.2-1.0); CO2 19.4 mmol/L (21.0-32.0); CREATININE 2.1 mg/dL (0.55-1.02); Calcium 7.6 mg/dL (8.5-10.1); Chloride 103 mmol/L (98-107); Estimated GFR 22.66 (mL/min/1.73m2); Glucose 90 mg/dL (74-106); Potassium 3.2 mmol/L (3.5-5.1); Sodium 135 mmol/L (136-145); Total Protein 5.2 g/dL (6.4-8.2)
[2024-09-21 07:53] LABS: ALT 1260 U/L (14-59); AST 1673 U/L (15-37)
[2024-09-21 08:43] LABS: Absolute Lymphocyte Count 0.62 10^3/uL (1.2-3.4); Absolute Neutrophil Count 5.22 10^3/uL (1.2-6.7); Atypical Lymphocytes % 1 %; Bands % 8 %; Metamyelocytes % 1
[2024-09-21 08:44] LABS: Diff Comment Manual Differential; Myelocytes % 0; Promyelocytes % 0; RBC Morphology Normal
[2024-09-21 08:45] LABS: Platelet Count 66 10^3/uL (130-400)
[2024-09-21] MEDS: Budesonide/Formoterol 80/4.5 6.9 GM 60 PUFF INH IH (09:12)
--- NOTE | 2024-09-21 09:27 | PDOC.CMIN ---
Date of service: 09/21/24 Time of Service: 09:27 Care Management Initial Assmt Initial Assessment Reason for Hospitalization: sepsis Functional Status/Living Situation Town of Residence: [place] Resides with: Spouse ( Kenny) Employment Status: Retired Medications Medication Management: No Issues/Barriers identified Advance Directives Advance Directives: Do you have an Advance Directive: AD On File at [facility]: N 09/20/24, 08:47 Date Asked 09/20/24 09/20/24, 08:47 AD Date Reviewed COLST On File at [facility] COLST Date Scanned Code Status Resuscitation Status DNR/DNI Portal Pt does not currently have a portal and education provided: No Portal Education: Other (not from area) Insurance Coverage/Financial Issues Insurance: BC/BS Medicare Advantage Care Team Visit Care Team Role Provider Type Leona Alfred Primary Care Provider NURSE PRACTITIONER Bubba Brannon, Emergency Provider [facility] STAFF PHYSICIAN Jose E Acosta Admit Provider [facility] STAFF PHYSICIAN Attending Provider Discharge Potential Discharge Needs: PCP F/U Appt Anticipated Barriers to Discharge: Medical Status Patient/Family Education Needs: Review discharge instructions, discuss Ask Me Three Transportation: Other (to be determined by disposition) Plan: Sherin was admitted with severe sepsis and is critically ill in the ICU. She has elevated LFTs and troponins, which are rising. She also has HOLDEN with elevated BUN and creatinine. Sherin will continue to be closely monitored and treated. CM will follow and support discharge planning efforts. Social Determinants of Health Screening Social Determinants of health last assessed in clinic: 09/20/24 Will the Patient Participate in the Screening?: Yes Do you worry about having a steady place to live?: yes What is your living situation today?: I have housing today, but am worried about losing it Problems where you live: no known problems In the past 12 months, have you had to go without electric, gas, oil or water in your home?: yes Has lack of transportation kept you from medical appointments or from doing things needed for daily living?: no Has anyone in your life made you feel unsafe or unsupported?: no How hard is it for you to pay for the very basics like food, housing, medical care, and heating? Would you say it is:: Not hard at all Do you want help finding or keeping work or a job?: I do not need or want help If for any reason you need help with day-to-day activities such as bathing, preparing meals, shopping, managing finances, etc., do you get the help you need?: I don?t need any help How often do you feel lonely or isolated from those around you?: Never Do you speak a language other than Colombian at home?: No Does the patient want assistance with any of the above?: No Comments: confused Health Related Social Needs Health related social needs: housing instability, housed, with risk of homelessness (Z59.811) and material hardship(utilities) (Z59.12) Health related social needs details: denies yordy social needs at this time [facility] All Active Problems (Updated 09/20/24 @ 16:36 by Bubba Brannon DO) Acute metabolic encephalopathy (Acute) Acute hypoxic respiratory failure (Acute) Congestive heart failure (Chronic) Pancreatic mass (Acute) Severe sepsis (Acute) Discharge planning issues (Acute) DVT prophylaxis (Acute) Thrombocytopenia (Chronic) Acute renal failure (Acute) Elevated troponin (Acute) Elevated liver enzymes (Acute) Severe sepsis with acute organ dysfunction (Acute) Medical History (Updated 09/20/24 @ 16:36 by Bubba Brannon DO) COPD (chronic obstructive pulmonary disease) Dementia Heart failure with reduced ejection fraction Surgical History (Updated 09/20/24 @ 15:08 by Jose E Acosta) S/P cholecystectomy Family History (Updated 09/20/24 @ 15:13 by Jose E Acosta) Mother Cancer Other Heart disease Social History (Updated 09/20/24 @ 15:42 by Jose E Acosta) Smoking/Tobacco Use Status: Never Smoking risk assessment performed?: Yes Alcohol Intake: current Alcohol Intake frequency: holidays/special occasions only Drug use: Never Substance use type: does not use Housing: house Do you feel safe at home: Yes Do you feel safe in your relationship?: Yes 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 [employer] - prefers minimal medical intervention
--- NOTE | 2024-09-21 09:45 | PGE_ITS ---
Date of Service Date of service: 09/21/24 Time of Service: 09:45 Assessment and Plan Assessment and plan (1) Severe sepsis with acute organ dysfunction: Status: Acute Assessment and plan: Fever, tahcycardia/tachypnea, lactate, and multiorgan dysfunction. Unclear source, Blood and UCx pending. Recent tick exposure, T[place] [facility] [place]. Should cover for anaplasmosis with LFTs/plts Pip/tazo and vancomycin, doxycycline with cultures pending She could benefit from more fluids. Tolerated 500ml bolus in ED, will repeat, also getting plenty orally. (2) Heart failure with reduced ejection fraction: Assessment and plan: Chest CT c/w some pulmonary edema, but I have not wanted to diurese with sepsis as above, still fluid down today. (3) Elevated troponin: Status: Acute Assessment and plan: Troponin was elevated at [facility], but much higher and trending up at presentation, add to morning labs. No chest pain, c/w stress ischemia, EKGs stable. Continue aspirin, but no anticoagulation with blood in stool (4) Elevated liver enzymes: Status: Acute Assessment and plan: Appears acute. Likely a/w shock and CHF. Could be anaplamosis. this is improving, continue to follow (5) Acute renal failure: Status: Acute Assessment and plan: A/w sepsis, likely pre-renal. Oliguric. I think she still needs fluid, trial 500ml bolus of LR now. (6) Thrombocytopenia: Status: Chronic Assessment and plan: a/w sepsis, liver dysfunction. Not overt DIC. Follow. (7) COPD (chronic obstructive pulmonary disease): Assessment and plan: SOB on presentation, but more c/w sepsis/CHF. Improving. Still no steroids for now. Nebs prn. (8) DVT prophylaxis: Status: Acute Assessment and plan: possible blood in stool, use SCDs for now (9) Discharge planning issues: Status: Acute Assessment and plan: Admitted to ICU confirms DNR/DNI. They would like to take her home, but agreeable to supportive care at least overnight here, thinking will stay another day. They are warry of hospice/palliative care system, but will continue to offer Subjective Subjective Patient reports: tolerating a regular diet; denies diarrhea, vomiting or fever Interval history since last seen: events: black stool, occult blood positive Oliguric overnight, 275 out since admission She is more alert this morning, recognizes [facility] ([facility] remembers where she lives. She is thirsty, drinking several cups of water this morning. She denies pain including chest pain and abdominal pain. Breathing is a little better. She is hungry. She would like to go home but willing to stay one more night. Exam Narrative Exam Narrative: GEN: Alert, sitting up eating breakfast, oriented x 2. Not in acute distress. LUNGS: Less bibasliar rales, less tachypeneic, no wheeze, good air movement. CV: Regular and tachycardic with no murmurs, gallops, or rubs. ABD: active bowel sounds, soft, nontender and nondistended. No overt fluid wave. Firm prominene in RUQ with deep palpation. EXT: no cyanosis, clubbing. Trace alan LE edema, warm. Objective Last Vital Signs Temp 36.7 C 09/20/24 18:35 Pulse 102 H 09/21/24 09:12 Resp 22 09/21/24 09:12 BP 99/72 L 09/21/24 06:00 Pulse Ox 89 L 09/21/24 09:12 Laboratory Results - last 24 hr 09/20/24 09/20/24 09/20/24 09:00 09:14 09:31 WBC RBC Hgb Hct MCV MCH MCHC RDW Plt Count MPV Immature Gran % Neutrophils % Band Neutrophils % Lymphocytes % Atypical Lymphs % Monocytes % Eosinophils % Basophils % Metamyelocytes % Myelocytes % Promyelocytes % Nucleated RBC % Absolute Neutrophils Absolute Lymphocytes Absolute Monocytes Absolute Eosinophils Absolute Basophils RBC Morphology PT 13.2 H INR 1.3 H APTT 32.2 H Sodium 143 Potassium 3.8 Chloride 105 Carbon Dioxide 20.4 L Anion Gap 17.6 H BUN 65 H Creatinine 1.8 H Est GFR (CKD-EPI 2020) 27.27 Glucose 129 H Calcium 8.4 L Total Bilirubin 1.6 H AST 2104 H ALT 1505 H Alkaline Phosphatase 128 H Ammonia < 10 L Troponin I 823 H* NT-Pro-B Natriuret Pep > 19271 H Total Protein 6.1 L Albumin 3.2 L Procalcitonin 42.07 TSH 3.04 Urine Color Yellow Urine Clarity Sl Cloudy Urine pH 5.5 Ur Specific [place] 1.020 Urine Protein 100 H Urine Ketones Negative Urine Blood Moderate H Urine Nitrite Negative Urine Bilirubin Small H Urine Urobilinogen 1.0 H Ur Leukocyte Esterase Negative Urine RBC 10-20 H Urine WBC 0-2 Ur Epithelial Cells Few Urine Crystals Moderate Amorphous Urine Bacteria Rare Urine Casts 5-10 Fine Granular Urine Mucus Trace Ur Culture Indicated? C&S Done As Ordered Urine Glucose Negative Random Vancomycin B. divergens/MO-1 PCR Cancelled Babesia duncani (PCR) Cancelled Babesia microti DNA PCR Cancelled Lyme Disease Antibody Cancelled COVID-19 Source SARS-CoV-2 (PCR) E.chaffeensis DNA (PCR) Cancelled E.ewingii/canis DNA PCR Cancelled E.muris eauclairensis (PCR) Cancelled Influenza Type A (PCR) Influenza Type B (PCR) RSV (PCR) A. phagocytophilum (PCR) Cancelled Blood B. miyamotoi (PCR) Cancelled 09/20/24 09/20/24 09/20/24 10:00 11:06 12:00 WBC RBC Hgb Hct MCV MCH MCHC RDW Plt Count MPV Immature Gran % Neutrophils % Band Neutrophils % Lymphocytes % Atypical Lymphs % Monocytes % Eosinophils % Basophils % Metamyelocytes % Myelocytes % Promyelocytes % Nucleated RBC % Absolute Neutrophils Absolute Lymphocytes Absolute Monocytes Absolute Eosinophils Absolute Basophils RBC Morphology PT INR APTT Sodium Potassium Chloride Carbon Dioxide Anion Gap BUN Creatinine Est GFR (CKD-EPI 2020) Glucose Calcium Total Bilirubin AST ALT Alkaline Phosphatase Ammonia Troponin I 909 H* 1234 H* NT-Pro-B Natriuret Pep Total Protein Albumin Procalcitonin TSH Urine Color Urine Clarity Urine pH Ur Specific [place] Urine Protein Urine Ketones Urine Blood Urine Nitrite Urine Bilirubin Urine Urobilinogen Ur Leukocyte Esterase Urine RBC Urine WBC Ur Epithelial Cells Urine Crystals Urine Bacteria Urine Casts Urine Mucus Ur Culture Indicated? Urine Glucose Random Vancomycin B. divergens/MO-1 PCR Babesia duncani (PCR) Babesia microti DNA PCR Lyme Disease Antibody COVID-19 Source Nasopharynx SARS-CoV-2 (PCR) Negative E.chaffeensis DNA (PCR) E.ewingii/canis DNA PCR E.muris eauclairensis (PCR) Influenza Type A (PCR) Negative Influenza Type B (PCR) Negative RSV (PCR) Negative A. phagocytophilum (PCR) Blood B. miyamotoi (PCR) 09/21/24 05:24 WBC 6.22 RBC 3.60 L Hgb 11.1 L Hct 32.7 L MCV 91 MCH 30.8 MCHC 33.9 RDW 14.9 H Plt Count 66 L MPV 13.9 H Immature Gran % 0.0 Neutrophils % 76.0 Band Neutrophils % 8 Lymphocytes % 9.0 Atypical Lymphs % 1 Monocytes % 5.0 Eosinophils % 0.0 Basophils % 0.0 Metamyelocytes % 1 Myelocytes % 0 Promyelocytes % 0 Nucleated RBC % 0.0 Absolute Neutrophils 5.22 Absolute Lymphocytes 0.62 L Absolute Monocytes 0.31 Absolute Eosinophils 0.00 Absolute Basophils 0.00 RBC Morphology Normal PT INR APTT Sodium 135 L Potassium 3.2 L Chloride 103 Carbon Dioxide 19.4 L Anion Gap 12.6 H BUN 78 H Creatinine 2.1 H Est GFR (CKD-EPI 2020) 22.66 Glucose 90 Calcium 7.6 L Total Bilirubin 1.7 H AST 1673 H ALT 1260 H Alkaline Phosphatase 101 Ammonia Troponin I NT-Pro-B Natriuret Pep Total Protein 5.2 L Albumin 2.5 L Procalcitonin TSH Urine Color Urine Clarity Urine pH Ur Specific [place] Urine Protein Urine Ketones Urine Blood Urine Nitrite Urine Bilirubin Urine Urobilinogen Ur Leukocyte Esterase Urine RBC Urine WBC Ur Epithelial Cells Urine Crystals Urine Bacteria Urine Casts Urine Mucus Ur Culture Indicated? Urine Glucose Random Vancomycin 15.0 B. divergens/MO-1 PCR Babesia duncani (PCR) Babesia microti DNA PCR Lyme Disease Antibody COVID-19 Source SARS-CoV-2 (PCR) E.chaffeensis DNA (PCR) E.ewingii/canis DNA PCR E.muris eauclairensis (PCR) Influenza Type A (PCR) Influenza Type B (PCR) RSV (PCR) A. phagocytophilum (PCR) Blood B. miyamotoi (PCR)
[2024-09-21 10:00] LABS: Lab Add On Test DONE
[2024-09-21] MEDS: Lactated Ringers 500 ML IV (10:30)
[2024-09-21 10:34] LABS: Troponin I 790 ng/L (<or=51)
--- NOTE | 2024-09-21 10:45 | RT.EKG_ITS ---
APPROVED REPORT Exam: Resting ECG Reason for Exam: tele change Patient Location: I HR:163 bpm ECG Measurements Heart Rate 163 AXIS KS 120 P 90 QRSd 166 QRS 237 QT 324 T 44 QTc 534 Conclusion Extreme tachycardia with wide complex, no further rhythm analysis attempted
[2024-09-21] MEDS: DOXYCYCLINE 100 MG in Normal Saline 100 ML IVPB (10:46)
[2024-09-21] MEDS: Metoprolol CR 25 MG TABCR PO (10:48)
[2024-09-21] MEDS: Aspirin E.C. 81 MG TABEC PO (10:48)
[2024-09-21] MEDS: ESMOLOL 2,500 MG/250 ML BAG 13.26 MG IV (11:15)
[2024-09-21] MEDS: Norepinephrine in D5W 8 MG/250 ML BAG 9.375 MG IV (11:59)
--- NOTE | 2024-09-21 12:24 | W.EVENT ---
Date of service: 09/21/24 Time of Service: 12:24 Event Note: pateint went into rapid atrial fibrillation. Started on esmolol given HFrEF. Was not controlling rate, MAP in 50s. At that point rapid call, prepping for cardioversion after d/w family, she started to get bradycardic, agonal breathing, then apnea. Niece who is regular caregiver was present and supportive the whole time. Care was withdrawn, see note. Time Spent with Patient Time spent in critical care(minutes): 45 Time Spent Included: Time at immediate bedside, Discussing critically ill care with other medical staff and Discussing Hx and/or treatment with family
--- NOTE | 2024-09-21 12:27 | W.PM.DDS ---
Date of service: 09/21/24 Time of Service: 12:27 Discharge Plan Disposition Patient Disposition: Discharge Details Reason For Visit: Severe Sepsis, CHF Admit Date/Time: 09/20/24 14:48 Admit Provider: Jose E Acosta Attending Provider: Jose E Acosta Primary Care Provider: Leona Alfred Hospital Course Hospital Course: 83 yo F with history of HFrEF, COPD, admitted at [facility] 09/18- for episode of dysphagia with diagnosis of TIA vs CVA who presented 09/20 to the ED with fevers, confusion, and shortness of breath and was found to have lactic acidosis, hypoxia, AST/ALT in 100s, elevated troponins, and HOLDEN. She was treated for sepsis with pip/tazo, vancomycin, and doxycycline due to recent tick bites. Non contrast CT on admission showed severe cardiomegaly and pulmonary edema, liver and pancreatic masses with ascites, with nothing acute on the head CT. She received conservative fluids due to CHF. She improved clinically by the next morning and was more oriented and interactive, eating a full breakfast, drinkin fluids, and joking. LFTs and troponins were trending down. In the late morning she had onset of irregular tachycardia with EKG c/w atrial fibrillation with her known LBBB. Her BP was initially stable, and she was started on esmolol rather than CCB given her HFrEF. Her heart rate was not coming down, and her blood pressure was getting lower with MAPs in 50s and the patient was not as responsive. Cardioversion was discussed with the neice who consented. Rapid response was called to mobilize support, but the patients heart rate then trended down. Norepinephrine was started. She continued to become bradycardic with agonal breaths that then stopped with only rare breaths. Care was then withdrawn and she peacefully with her niece at her side signing hymns in her ear. Discharge Data Cause of : Sepsis Discharge Sum: Prov Provider Primary care physician: Leona Alfred Admitting clinician: Jose E Acosta Attending physician on admission: Jose E Acosta Consults: 09/20/24 10:23 [facility] [place] TelePharmacy Med Rec [CONS] Routine Reason for [facility] Telepharmacy ordered: Complicated History Unit to Contact: ER Pronouncing clinician: Jose E Acosta Discharge Sum: Diag PCOD Cause of : Sepsis Contributing Factors (1) Severe sepsis with acute organ dysfunction: (2) Heart failure with reduced ejection fraction: (3) Elevated troponin: (4) Elevated liver enzymes: (5) Acute renal failure: (6) Thrombocytopenia: (7) COPD (chronic obstructive pulmonary disease): Discharge Sum: Summary Date and Time Admission Date: 09/20/24 Date of : 09/21/24 Time of : 12:14 Summary Details: 83 yo F with history of HFrEF, COPD, admitted at [facility] 09/18- for episode of dysphagia with diagnosis of TIA vs CVA who presented 09/20 to the ED with fevers, confusion, and shortness of breath and was found to have lactic acidosis, hypoxia, AST/ALT in 100s, elevated troponins, and HOLDEN. She was treated for sepsis with pip/tazo, vancomycin, and doxycycline due to recent tick bites. Non contrast CT on admission showed severe cardiomegaly and pulmonary edema, liver and pancreatic masses with ascites, with nothing acute on the head CT. She received conservative fluids due to CHF. She improved clinically by the next morning and was more oriented and interactive, eating a full breakfast, drinkin fluids, and joking. LFTs and troponins were trending down. In the late morning she had onset of irregular tachycardia with EKG c/w atrial fibrillation with her known LBBB. Her BP was initially stable, and she was started on esmolol rather than CCB given her HFrEF. Her heart rate was not coming down, and her blood pressure was getting lower with MAPs in 50s and the patient was not as responsive. Cardioversion was discussed with the neice who consented. Rapid response was called to mobilize support, but the patients heart rate then trended down. Norepinephrine was started. She continued to become bradycardic with agonal breaths that then stopped with only rare breaths. Care was then withdrawn and she peacefully with her niece at her side signing hymns in her ear. Additional Data Family: at bedside Additional persons at bedside: other (MD, RNs) Attending/PCP notified?: Yes Attending Physician: Jose E Acosta Was code activated?: No Autopsy requested?: No film examiner notified?: No Organ bank notified?: No Advance directives: Yes Hospice patient?: No
[2024-09-21] MEDS: Esmolol 100 MG/10 ML VIAL 22 MG IVP (13:00)
--- NOTE | 2024-09-21 17:44 | CMPROGNOTE_ITS ---
Date of service: 09/21/24 Time of Service: 17:44 Care Management Progress Note Progress Note Text Progress Note Text: Sherin was admitted to [facility] on 09/20/24 with severe sepsis. She had been at [facility] 09/18-09/19 for an episode of dysphagia with a diagnosis of TIA vs CVA. Her symptoms resolved and she was cleared by PT to return home. Her condition deteriorated at home and she was taken to [facility] on 09/20/24. When Sherin arrived she was febrile, confused and short of breath. She had elevated troponins, HOLDEN, elevated LFTs and evidence of pulmonary edema on imaging. She was started on antibiotics and given gentle hydration. She initially improved however she developed an irregular tachycardia and rapidly declined. A rapid response was called but Sherin was unable to recoveer and at 12:14 pm. Social Determinants of Health Screening Social Determinants of health last assessed in clinic: 09/21/24 Will the Patient Participate in the Screening?: Yes Do you worry about having a steady place to live?: yes What is your living situation today?: I have housing today, but am worried about losing it Problems where you live: no known problems In the past 12 months, have you had to go without electric, gas, oil or water in your home?: yes 1. Within the past 12 months, we worried whether our food would run out before we got money to buy more.: Never true 2. Within the past 12 months, the food we bought just didn't last and we didn't have money to get more.: Never true Has lack of transportation kept you from medical appointments or from doing things needed for daily living?: no Has anyone in your life made you feel unsafe or unsupported?: no How hard is it for you to pay for the very basics like food, housing, medical care, and heating? Would you say it is:: Not hard at all Do you want help finding or keeping work or a job?: I do not need or want help If for any reason you need help with day-to-day activities such as bathing, preparing meals, shopping, managing finances, etc., do you get the help you need?: I don?t need any help How often do you feel lonely or isolated from those around you?: Never Do you speak a language other than Spanish at home?: No Does the patient want assistance with any of the above?: No Comments: confused Health Related Social Needs Health related social needs: housing instability, housed, with risk of homelessness (Z59.811) and material hardship(utilities) (Z59.12) Health related social needs details: denies yordy social needs at this time
== END 2024-09-21 12:14 | disposition expired | DRG 872 ==
LOC: ER 15:09 → ICU 15:49
PROVIDERS: Admitting Provider Family Medicine; Emergency Provider Student in an Organized Health Care Education/Training Program; PCP Nurse Practitioner; Responsible Provider Family Medicine; Visit Provider Family Medicine
DX: A41.9 Sepsis, unspecified organism (principal); I50.20 Unspecified systolic (congestive) heart failure; N17.9 Acute kidney failure, unspecified; R18.8 Other ascites; R65.20 Severe sepsis without septic shock; R74.8 Abnormal levels of other serum enzymes; D69.6 Thrombocytopenia, unspecified; J44.9 Chronic obstructive pulmonary disease, unspecified; K76.89 Other specified diseases of liver; K86.89 Other specified diseases of pancreas; R09.02 Hypoxemia; I48.91 Unspecified atrial fibrillation; I44.7 Left bundle-branch block, unspecified; I95.9 Hypotension, unspecified; R00.1 Bradycardia, unspecified; Z66 Do not resuscitate; Z86.73 Personal history of transient ischemic attack (TIA), and cerebral infarction without residual deficits; R19.5 Other fecal abnormalities
CPT/HCPCS: 00123; 36415; 36416; 51702; 71250; 80053; 82805; 82962; 84145; 87040; 87637; 87798; 93005; 94640; 94761; 96365; 96366; 96368; 96372; 99291; 70450; 74176; 80202; 81003; 81015; 82140; 82272; 83605; 83880; 84443; 84484; 85025; 85610; 85730; 86618; 87086; 93010; 94760; 99223; 99238; J0131; J1805; J2543; J3372; J7620